=== PATIENT | female | born 1950 | race African-American/Black ===

== ENCOUNTER 2017-06-18 06:00 | Emergency (ER) | payer OTHER ==
[~2017-06-18] VITALS: Ht 170.2 cm; Wt 81.6 kg
[~2017-06-18 06:00] MED LIST: NORCO 5-325 TA1 EACH ORAL
--- NOTE | 2017-06-18 06:47 | Emergency Room Report ---
History of Present Illness General Chief Complaint: Lower Extremity Injury Source: Patient Present Illness HPI 66 YO F, no significant past medical history, presenting with left ankle pain. Patient states that she fell and twisted it yesterday, did not hit her head. There was no loss of consciousness. Now complaining of pain to the lateral aspect of her left foot. Still able to bear weight on it. No numbness or tingling to the foot. Patient has taken Motrin with relief. No other complaints Allergies: Coded Allergies: No Known Allergies (Unverified , 10/13/14) Patient History Past Medical History: see triage record Past Surgical History: none Pertinent Family History: none Last Menstrual Period: NA Reviewed Nursing Documentation: PMH: Agreed, PSxH: Agreed Nursing Documentation-PMH Hx Cardiac Problems: No - SHOGEN'S DISEASE, FIBROMYALGIA, SEASONAL ALLERGIES, ARTHRITIS Review of Systems All Other Systems: negative except mentioned in HPI Physical Exam Vital Signs Date Time Temp Pulse Resp B/P (MAP) Pulse Ox O2 Delivery O2 Flow Rate FiO2 06/18/17 06:11 97.7 82 18 131/66 99 Room Air 97.7 Sp02 EP Interpretation: reviewed, normal General Appearance: normal inspection, well appearing, no apparent distress, alert, GCS 15, non-toxic Head: normocephalic, atraumatic Eyes: bilateral eye normal inspection, bilateral eye PERRL, bilateral eye EOMI ENT: normal ENT inspection, normal pharynx, normal voice, moist mucus membranes Neck: normal inspection, full range of motion, supple Respiratory: normal inspection, lungs clear, normal breath sounds, no respiratory distress, no retraction, no wheezing, speaking full sentences, chest symmetrical Cardiovascular #1: normal inspection, regular rate, rhythm, no edema, normal capillary refill Cardiovascular #2: 2+ radial (R), 2+ radial (L) Gastrointestinal: normal inspection, non tender, soft, non-distended, no guarding Musculoskeletal: other - L ankle / mid foot TTP, some edema. no 5th MT tenderness. FROM. DP intact Neurologic: normal inspection, alert, oriented x3, responsive, motor strength/ tone normal, sensory intact, normal gait, speech normal Psychiatric: normal inspection, judgement/insight normal, memory normal Skin: normal inspection, normal color, no rash, warm/dry, well hydrated, normal turgor Procedures Splinting Splinting : Consent: Verbal Location: L foot Pre-Made Type: ITZ wrap Pre-Proc Neuro Vasc Exam: normal Post-Proc Neuro Vasc Exam: normal Patient Tolerated: Well Complications: None Medical Decision Making Diagnostic Impression: Primary Impression: Ankle pain, left ER Course 66 yo F with L ankle pain DDX: Sprain/strain vs. fracture Plan: Pain control with motrin offered but pt refused XR ER course: XR reveals soft tissue swelling without fracture ITZ bandage applied. Disposition: Patient is to be discharged home with a prescription of motrin. Patient educated to rest, ice, and elevate extremity and to avoid vigorous activity. Strict precautions discussed with patient on when to return to the emergency room including increased redness or swelling joints, increased pain/swelling of extremity, fever or chills, which could indicate severe illness. Patient is to follow up with their primary care doctor within 5 days. Patient also instructed to follow up with an orthopedic doctor if continuing to have mild/moderate pain as he may need further outpatient imaging. Patient agrees with plan. Please note that this Emergency Department Report was dictated using [email or web address] technology software, occasionally this can lead to erroneous entry secondary to interpretation by the dictation equipment. Xray ordered: L ankle 3 view Indication: Pain EP Interpretation: Yes Interpretation: No dislocation, no soft tissue swelling, no fractures Impression: No acute disease Electronically signed by Nadia Tipton MD Xray: L foot 3 view Indication: Pain EP Interpretation: Yes Interpretation: No dislocation, no soft tissue swelling, no fractures Impression: No acute disease Electronically signed by Nadia Tipton MD Last Vital Signs Date Time Temp Pulse Resp B/P (MAP) Pulse Ox O2 Delivery O2 Flow Rate FiO2 06/18/17 06:11 97.7 82 18 131/66 99 Room Air 97.7 Disposition: HOME, SELF-CARE Condition: Improved Referrals: [facility],REFERRING (PCP) Patient Instructions: Ankle Sprain Nadia Tipton M.D. Jun 18, 2017 06:47
[2017-06-18 07:46] VITALS: BP 131/66
--- NOTE | 2017-06-18 10:24 | Diagnostic Imaging Report ---
Indication: Ankle pain Technique: 3 views of the left ankle Comparison: Findings: No acute fractures. No dislocations. Joint spaces are preserved. Normal mineralization. No radiopaque foreign body. Impression: Negative
--- NOTE | 2017-06-18 10:25 | Diagnostic Imaging Report ---
Indication: Reason For Exam: PAIN Technique: 3 views left foot Comparison: none Findings: No acute fractures. No dislocations. The joint spaces are preserved. Impression: Negative
== END 2017-06-18 07:47 | disposition home or self-care (01) ==
LOC: EMR 06:33
DX: M25.572 Pain in left ankle and joints of left foot (principal); M79.7 Fibromyalgia; M19.90 Unspecified osteoarthritis, unspecified site
CPT/HCPCS: 29540; 99283

== ENCOUNTER 2017-12-14 11:21 | Emergency (ER) | payer OTHER ==
[~2017-12-14] VITALS: Ht 167.6 cm; Wt 78.5 kg
[2017-12-14 11:35] VITALS: BP 113/64
[2017-12-14] MEDS ORDERED: Lidocaine 1% MPF 10mg/ml 5ml IM ONE (12:00)
[2017-12-14] MEDS ORDERED: Bacitracin Oint UD TOPIC ONE ×2 (12:39→12:45)
--- NOTE | 2017-12-14 12:52 | Emergency Room Report ---
History of Present Illness General Chief Complaint: Laceration Source: Patient Present Illness HPI Patient presents with laceration to the right foot Patient reports that about 1 hour prior to arrival she has that on a glass It went through her shoe and lacerated her foot Patient denies any ankle pain denies any knee pain Pain to the foot itself is 8 out of 10 denies any fevers or chills Denies any back or flank pain Does not feel that any piece had broken inside her foot Allergies: Coded Allergies: No Known Allergies (Unverified , 10/13/14) Patient History Past Medical History: see triage record Pertinent Family History: none Now: No Reviewed Nursing Documentation: PMH: Agreed; PSxH: Agreed Nursing Documentation-PMH Hx Cardiac Problems: No - SHOGEN'S DISEASE, FIBROMYALGIA, SEASONAL ALLERGIES, ARTHRITIS Review of Systems All Other Systems: negative except mentioned in HPI Physical Exam Vital Signs Date Time Temp Pulse Resp B/P (MAP) Pulse Ox O2 Delivery O2 Flow Rate FiO2 12/14/17 11:27 98.1 88 20 113/64 98 Room Air 98.1 Sp02 EP Interpretation: reviewed, normal General Appearance: well appearing, no apparent distress Head: normocephalic, atraumatic Eyes: bilateral eye PERRL, bilateral eye EOMI ENT: normal pharynx Neck: supple Respiratory: lungs clear Cardiovascular #1: regular rate, rhythm Gastrointestinal: non tender, soft Musculoskeletal: other - Full flexion and extension of the toes and the foot itself intact Neurologic: alert, oriented x3, responsive Skin: other - Jagged laceration involving the lateral aspect of the right foot approximately 3 cm Lymphatic: no adenopathy Procedures Laceration/Wound Repair Laceration/Wound Repair : Consent: Verbal Wound Location: lower extremity Wound's Depth, Shape: into muscle Wound Length (cm): 3 Wound Explored: no foreign body removed Irrigated w/ Saline (ccs): 200 Anesthesia: 1% Lidocaine Volume Anesthetic (ccs): 3 Wound Debrided: minimal Wound Repaired With: sutures Suture Size/Type: 4:0 Number of Sutures: 6 Sterile Dressing Applied?: Yes Splint Applied?: No Patient Tolerated: Well Complications: None Progress 2 Steri-Strips were also applied over the top of the laceration Medical Decision Making Diagnostic Impression: Primary Impression: Laceration ER Course The laceration involving the base of the foot is fairly complex There is a jagged appearance with a perpendicular laceration at the mid point This required extensive suturing time There is appropriate approximation at this time Patient is provided with a shoe At this time is encouraged to have decreased weight applied to that foot She does mention that she needs to go to a show on Sunday patient was also provided with a podiatry referral and requires close follow-up Last Vital Signs Date Time Temp Pulse Resp B/P (MAP) Pulse Ox O2 Delivery O2 Flow Rate FiO2 12/14/17 11:35 98.1 88 20 113/64 98 Room Air 98.1 Status: improved Disposition: HOME, SELF-CARE Condition: Improved Referrals: NOT APPLICABLE THIS PATIENT,RE (PCP) Additional Instructions: Patient is provided with the discharge instructions notified to follow up with primary doctor in the next 2-3 days otherwise return to the er with any worsening symptoms. Please note that this report is being documented using [employer] technology. This can lead to erroneous entry secondary to incorrect interpretation by the dictating instrument. Francisca Yu DO Dec 14, 2017 12:52
[2017-12-14] MEDS ORDERED: IBUPROFEN600 MG ORAL (13:05)
[2017-12-14] MEDS ORDERED: CEPHALEXIN500 MG ORAL (13:05)
[2017-12-14 13:12] VITALS: BP 124/69
== END 2017-12-14 13:12 | disposition home or self-care (01) ==
LOC: EMR 12:05
DX: S91.311A Laceration without foreign body, right foot, initial encounter (principal); W25.XXXA Contact with sharp glass, initial encounter; W45.8XXA Other foreign body or object entering through skin, initial encounter; Y93.9 Activity, unspecified; Y92.9 Unspecified place or not applicable
CPT/HCPCS: 99283

== ENCOUNTER 2018-07-21 11:33 | Emergency (ER) | payer OTHER, MEDICAID ==
[~2018-07-21] VITALS: Ht 167.6 cm; Wt 74.4 kg
[~2018-07-21 11:33] MED LIST changes: +CEPHALEXIN500 MG ORAL; +IBUPROFEN600 MG ORAL
[2018-07-21 12:01] VITALS: BP 144/80
--- NOTE | 2018-07-21 12:01 | NUR ---
ED Nurse Note: Pt from home came in due to productive coughing with green plegm, runny nose and sore throat x 2 weeks. Denies fever.
--- NOTE | 2018-07-21 12:07 | Emergency Room Report ---
History of Present Illness General Chief Complaint: Flu Like Symptoms Source: Patient Present Illness HPI 67-year-old female with no significant past medical history here complaining of 2 weeks of cough with green time denying any fever or chills. Denies rhinorrhea and congestion. Patient complains of wheezing denies chest pain SOB palpitation abdominal pain nausea vomiting. Has not taken any medication for symptom relief other than ufga-uol-erxmece cough medication. Allergies: Coded Allergies: No Known Allergies (Unverified , 10/13/14) Patient History Past Medical History: see triage record Past Surgical History: none Pertinent Family History: none Reviewed Nursing Documentation: PMH: Agreed; PSxH: Agreed Nursing Documentation-PMH Hx Cardiac Problems: No - SHOGEN'S DISEASE, FIBROMYALGIA, SEASONAL ALLERGIES, ARTHRITIS Review of Systems All Other Systems: negative except mentioned in HPI Physical Exam Vital Signs Date Time Temp Pulse Resp B/P (MAP) Pulse Ox O2 Delivery O2 Flow Rate FiO2 07/21/18 11:51 98.4 87 20 158/89 96 Room Air Sp02 EP Interpretation: reviewed, normal General Appearance: normal inspection, well appearing Head: normocephalic Eyes: bilateral eye normal inspection, bilateral eye PERRL ENT: hearing grossly normal, normal pharynx, no angioedema, TMs + canals normal Neck: normal inspection, supple Respiratory: chest non-tender, lungs clear, no rhonchi, wheezing Cardiovascular #1: normal inspection, normal peripheral pulses, regular rate, rhythm, no edema Gastrointestinal: normal inspection, no mass Genitourinary: no CVA tenderness Musculoskeletal: normal inspection, back normal Neurologic: normal inspection, alert, oriented x3 Psychiatric: normal inspection, judgement/insight normal Skin: normal inspection, normal color, no rash, warm/dry Lymphatic: normal inspection, no adenopathy Medical Decision Making PA Attestation All diagnoses and treatment plans are reviewed and discussed with my supervising physician Dr. Jacobs Diagnostic Impression: Primary Impression: Bronchitis ER Course 67-year-old female with no significant past medical history here complaining of 2 weeks of cough with green time denying any fever or chills. Denies rhinorrhea and congestion. Patient complains of wheezing denies chest pain SOB palpitation abdominal pain nausea vomiting. Has not taken any medication for symptom relief other than [id number]-xon-uqtxrlm cough medication. Ddx considered but are not limited to bronchitis, PNA, ashtma Vital signs: are WNL, pt. is afebrile H&PE are most consistent with bronchitis ORDERS: azithromycin, tesselon pearls, albuterol ED INTERVENTIONS: None required at this time. DISCHARGE: At this time pt. is stable for d/c to home. Will provide printed patient care instructions, and any necessary prescriptions. Care plan and follow up instructions have been discussed with the patient prior to discharge. f/u pcp for all other concerns Last Vital Signs Date Time Temp Pulse Resp B/P (MAP) Pulse Ox O2 Delivery O2 Flow Rate FiO2 07/21/18 12:01 87 20 Room Air 07/21/18 11:51 98.4 158/89 96 Disposition: HOME, SELF-CARE Condition: Stable Scripts Albuterol Sulfate (VENTOLIN HFA) 18 Gm Hfa.aer.ad 2 PUFFS INH EVERY 6 HOURS, #18 GM 0 Refills Prov: Clarke Desir 07/21/18 Benzonatate* (TESSALON PERLE*) 100 Mg Capsule 100 MG ORAL THREE TIMES A DAY, #20 PERLE Prov: Clarke Desir 07/21/18 Azithromycin* (ZITHROMAX*) 250 Mg Tablet 250 MG ORAL DAILY, #6 TAB 0 Refills Take two tables once daily for 1 day, then one tablet once daily for 4 days. Prov: Clarke Desir 07/21/18 Patient Instructions: Acute Bronchitis, Huvn-[id number] Additional Instructions: follow up with primary dr if symptoms continue. return to ER if shortness of breath, high fever Clarke Desir Jul 21, 2018 12:07
[2018-07-21] MEDS ORDERED: TESSALON PERLE100 MG ORAL (12:08)
[2018-07-21] MEDS ORDERED: ZITHROMAX250 MG ORAL (12:08)
[2018-07-21] MEDS ORDERED: VENTOLIN HFA18 GM INH (12:08)
[2018-07-21 12:17] VITALS: BP 148/79
--- NOTE | 2018-07-21 12:17 | NUR ---
ED Nurse Note: Pt cleared for DC. ACI given and explained to pt and verbalized understanding. ID band removed. Pt AAO x4, and left with all belongings.
== END 2018-07-21 12:17 | disposition home or self-care (01) ==
LOC: EMR 12:00
DX: J40 Bronchitis, not specified as acute or chronic (principal); M79.7 Fibromyalgia
CPT/HCPCS: 99282